=== PATIENT | female | born 1985 | race Caucasian/White ===

== ENCOUNTER → 2019-02-09 | Outpatient (CLI) | payer OTHER ==
--- NOTE | 2019-02-09 11:46 | REP ---
CERVICAL SPINE, SEVEN VIEWS: HISTORY: Sprain. There is no acute fracture or subluxation. The intervertebral discs are normal in height. The neural foramina are patent. There is loss of a normal lordotic curve. IMPRESSION: There is no acute fracture or subluxation. Electronically Signed by Ricco Ritchie MD 02/09/2019 11:49 A
== END ==
LOC: M WUC 10:40
PROVIDERS: ATTEND Physician Assistant
DX: S13.4XXA Sprain of ligaments of cervical spine, initial encounter (principal); Y92.9 Unspecified place or not applicable; Y93.9 Activity, unspecified

== ENCOUNTER → 2019-09-08 | Outpatient (CLI) | payer OTHER ==
[2019-09-08 08:31] LABS: HEMATOCRIT 33.3 % (36.0-47.0); HEMOGLOBIN 11.1 g/dl (12.0-15.5); MEAN CORPUSCULAR HEMOGLOBIN 29.5 pg (27.0-33.0); MEAN CORPUSCULAR HGB CONC 33.3 g/dl (32.0-36.5); MEAN CORPUSCULAR VOLUME 88.6 fl (80.0-96.0); PLATELET COUNT, AUTOMATED 234 10^3/uL (150-450); RED BLOOD COUNT 3.76 10^6/uL (4.00-5.40)
== END ==
LOC: M LAB 07:06
PROVIDERS: ATTEND Nurse Practitioner Women's Health
DX: Z34.03 Encounter for supervision of normal first pregnancy, third trimester (principal); Z3A.00 Weeks of gestation of pregnancy not specified

== ENCOUNTER → 2019-10-31 | Outpatient (REF) | payer OTHER | LOC: M LAB REF 16:20 | PROVIDERS: ATTEND Obstetrics & Gynecology | DX: Z34.83 Encounter for supervision of other normal pregnancy, third trimester (principal) ==

== ENCOUNTER 2019-11-09 01:55 | Inpatient (IN) | payer OTHER ==
[~2019-11-09] VITALS: Ht 165.1 cm; Wt 94.5 kg
[2019-11-09] MEDS ORDERED: LACTATED RINGER'S 1000 ML IV STA (02:18)
[2019-11-09] MEDS ORDERED: LR 1,000 ML IV SCH (02:18)
[2019-11-09] MEDS ORDERED: OXYTOCIN DRIP 30 UNITS in IV 1 EA IV SCH ×2 (02:30→05:30)
[2019-11-09 02:47] LABS: HEMATOCRIT 31.9 % (36.0-47.0); HEMOGLOBIN 10.8 g/dl (12.0-15.5); MEAN CORPUSCULAR HEMOGLOBIN 28.1 pg (27.0-33.0); MEAN CORPUSCULAR HGB CONC 33.9 g/dl (32.0-36.5); MEAN CORPUSCULAR VOLUME 83.1 fl (80.0-96.0); PLATELET COUNT, AUTOMATED 189 10^3/uL (150-450); RED BLOOD COUNT 3.84 10^6/uL (4.00-5.40); WHITE BLOOD COUNT 14.2 10^3/uL (4.0-10.0)
[2019-11-09] MEDS ORDERED: FENTANYL 2MCG/ML ROPIVACAINE 0.2% IN 0.9% NACL 100ML IVBAG As Ordered ONE (02:56)
[2019-11-09] MEDS ORDERED: AMPICILLIN SOD 2 GM in D5W MINI-BAG PLUS 100 ML IV ONE (03:30)
[2019-11-09] MEDS ORDERED: FENTANYL/ROPIVACAINE/NACL BAG 100 ML EPIDURAL SCH (04:00)
[2019-11-09] MEDS ORDERED: EPIDURAL/PCA KEYS XX PRN (04:00)
[2019-11-09] MEDS ORDERED: ePHEDrine SULFATE 25 MG/5 ML(5MG/ML) SYRINGE IV PRN (04:00)
[2019-11-09] MEDS ORDERED: EPIDURAL COMMENT XX SCH (04:00)
[2019-11-09] MEDS ORDERED: NALOXONE INJ 0.4 MG/1 ML VIAL (J2310) IV PRN (04:00)
[2019-11-09] MEDS ORDERED: REFRIGERATOR IV KEYS XX PRN (04:00)
[2019-11-09] MEDS ORDERED: ONDANSETRON 4MG/2ML VIAL (J2405) IV PRN (04:00)
[2019-11-09] MEDS ORDERED: diphenhydrAMINE INJ 50MG/ML VIAL (J1200) IV PRN (04:00)
[2019-11-09] MEDS ORDERED: LACTATED RINGER'S 1000 ML IV PRN (04:00)
[2019-11-09 05:28] LABS: CORD GAS ABE A -1.6; CORD GAS ABE V -2.6; CORD GAS HCO3 A 24.6 MEQ/L; CORD GAS HCO3 V 20.3 MEQ/L; CORD GAS O2 SAT V 74.6 %; CORD GAS PCO2 A 47.1 mmHg; CORD GAS PCO2 V 30.5 mmHg; CORD GAS PH A 7.335 UNITS; CORD GAS PH V 7.442 UNITS; CORD GAS PO2 A 13.4 mmHg; CORD GAS PO2 V 30.6 mmHg; CORD GAS SBC A 21.5 MEQ/L; CORD GAS SBC V 21.8 MEQ/L; CORD GAS TCO2 V 21.3 MEQ/L
[2019-11-09] MEDS ORDERED: RHOGAM 300 MCG (1500 IU) INJ (J2790) IM SCH (05:30)
[2019-11-09] MEDS ORDERED: DOCUSATE SODIUM 100 MG CAP PO PRN (05:30)
[2019-11-09] MEDS ORDERED: MEASLES,MUMPS,RUBELLA VACCINE INJ (MMR-II) (90707) SC SCH (05:30)
[2019-11-09] MEDS ORDERED: ACETAMINOPHEN TAB 650MG DOSE (2X325MG) PO PRN (05:30)
[2019-11-09] MEDS ORDERED: DIBUCAINE 1% OINTMENT 30GM TOP PRN (05:30)
[2019-11-09] MEDS ORDERED: ANUSOL HC CREAM 30GM TOP PRN (05:30)
[2019-11-09] MEDS ORDERED: METHYLERGONOVINE MALEATE 0.2 MG TAB PO PRN (05:30)
[2019-11-09] MEDS ORDERED: IBUPROFEN 800 MG TAB PO PRN (05:30)
[2019-11-09 07:12] VITALS: BP 116/70
[2019-11-09] MEDS: IBUPROFEN 600 MG TAB PO PRN ×2 (07:30→16:26)
[2019-11-09] MEDS ORDERED: AMPICILLIN SOD 1 GM in D5W MINI-BAG PLUS 50 ML IV SCH (07:30)
[2019-11-09] MEDS: PRENATAL VITAMINS CHEWABLE TABLET PO SCH (10:50)
--- NOTE | 2019-11-09 10:56 | HPE ---
DATE OF ADMISSION: 11/09/2019 Jennifer is a 34-year-old female 3, para 2-0-0-2 with an estimated date of confinement (EDC) of 11/23/2019, estimated gestational age (EGA) 38-1/7 weeks gestation who presented to labor and delivery with complaint of gross rupture of membrane with so occasional contractions. The patient has had a similar episode before. Upon evaluation in labor and delivery she was found to be grossly ruptured, Nitrazine positive with pooling. At this point a decision was made for admission. Her record reviewed. The patient had a first trimester ultrasound at 7 weeks. LAB: blood type is A+, rubella immune, hepatitis negative, HIV negative, GC, chlamydia negative. 1-hour sugar testing was within normal limits. Her GBS during this was negative, however the patient does have a history of prior GBS positive and will be treated with ampicillin. PAST MEDICAL HISTORY. Denies. PAST SURGICAL HISTORY: The patient had a loop electrosurgical excision procedure (LEEP) procedure done. SOCIAL HISTORY: She is . Denies any alcohol, drug or cigarette smoking. REVIEW OF SYSTEMS: Unremarkable. MEDICATIONS: vitamin ALLERGIES: NO KNOWN DRUG ALLERGIES. PHYSICAL EXAMINATION: Normal-appearing female in no acute distress. Abdomen: Soft, nontender, nondistended. Extremities: No clubbing, cyanosis or edema. Vaginal exam 4 cm, 80% effaced, fetus at -3 station in a vertex position with gross rupture of membrane, Nitrazine positive and pooling. ASSESSMENT: 1. Intrauterine at 38-1/7 weeks gestation with gross rupture of membrane in early labor. 2. Prior history of GBS positive. PLAN: Admit to labor and delivery. Routine labs sent. Pain management discussed. The patient opted for an epidural. Ampicillin will be started for GBS prophylaxis. Consider Pitocin augmentation.
[2019-11-09 11:21] VITALS: BP 138/77
--- NOTE | 2019-11-09 14:12 | DN ---
DELIVERY NOTE DATE OF DELIVERY: 11/09/2019 Jennifer is a 34-year-old female 3, para 2-0-0-2 who was admitted at 38- 1/7 weeks gestation with spontaneous rupture of membranes in early labor. She then progressed to fully dilated, pushed and delivered a live female with a nuchal cord times one over an intact perineum. scores of 9 and 9. weight 7 pounds 4 ounces. Placenta delivered spontaneously intact. Three- vessel cord. Perineum, vagina, and cervix inspected. No laceration noted. Estimated blood loss 300 mL. Both mother and baby in stable condition. [facility]
[2019-11-09 18:01] VITALS: BP 110/58
[2019-11-09] MEDS: ACETAMINOPHEN 500 MG TAB PO PRN (19:40)
[2019-11-10] MEDS: ACETAMINOPHEN 500 MG TAB PO PRN ×2 (05:47→14:29)
--- NOTE | 2019-11-10 08:01 | IPNPDOC ---
Progress Note Date of Service: Nov 10, 2019 Day#: 1 Progress Note S: Doing well w/o complaints. O: vss, AF gen: well appearing abd: soft, nttp ext: neg calf tenderness A/P: PPD#1 s/p , recovering in stable condition -routine care -d/c tomorrow Theresa Bello MD VS, I&O, 24H, Fishbone Vital Signs/I&O Vital Signs Date Time Temp Pulse Resp B/P (MAP) Pulse Ox O2 Delivery O2 Flow Rate FiO2 11/09/19 18:01 97.7 81 18 110/58 (75) 11/09/19 11:21 Room Air I&O- Last 24 Hours up to 6 AM 11/10/19 06:00 Intake Total 100 ml Output Total 700 ml Balance -600 ml THERESA BELLO MD. Nov 10, 2019 08:01
[2019-11-10] MEDS: PRENATAL VITAMINS CHEWABLE TABLET PO SCH (08:35)
[2019-11-10] MEDS: IBUPROFEN 600 MG TAB PO PRN ×2 (08:36→20:16)
[2019-11-10 17:57] VITALS: BP 128/73
[2019-11-11 05:58] VITALS: BP 121/76
[2019-11-11] MEDS: IBUPROFEN 600 MG TAB PO PRN (10:39)
[2019-11-11] MEDS: PRENATAL VITAMINS CHEWABLE TABLET PO SCH (10:39)
== END 2019-11-11 13:05 | disposition home or self-care (01) | DRG 807 ==
LOC: M LDO 01:55 → M LDI 02:14 → M OBS 11:16
PROVIDERS: ADMIT Obstetrics & Gynecology; ATTEND Obstetrics & Gynecology
PROC: 10E0XZZ Delivery of Products of Conception, External Approach (ICD-10-PCS; principal; 2019-11-09)
DX: O09.523 Supervision of elderly multigravida, third trimester (principal); Z37.0 Single live birth; Z3A.38 38 weeks gestation of pregnancy; Z86.19 Personal history of other infectious and parasitic diseases

== ENCOUNTER → 2020-09-22 | Outpatient (CLI) | payer SELFPAY | LOC: M LABSMTC 09:15 | PROVIDERS: ATTEND Pediatrics | DX: Z20.822 Contact with and (suspected) exposure to COVID-19 (principal) ==

== ENCOUNTER → 2023-03-10 | Outpatient (CLI) | payer OTHER ==
[2023-03-10 16:36] LABS: BASO # 0.1 10^3/uL (0.0-0.2); BASO % 0.6 % (0.0-1.0); EOS # 0.2 10^3/uL (0.0-0.5); EOS % 1.8 % (0.0-3.0); HEMATOCRIT 41.5 % (36.0-47.0); LYMPH # 2.4 10^3/uL (1.5-5.0); LYMPH % 26.8 % (24.0-44.0); MEAN CORPUSCULAR HEMOGLOBIN 29.6 pg (27.0-33.0); MEAN CORPUSCULAR HGB CONC 33.7 g/dl (32.0-36.5); MEAN CORPUSCULAR VOLUME 87.7 fl (80.0-96.0); MONO # 0.7 10^3/uL (0.0-0.8); MONO % 7.5 % (2.0-8.0); NEUTROPHILS # 5.7 10^3/uL (1.5-8.5); PLATELET COUNT, AUTOMATED 229 10^3/uL (150-450); RED BLOOD COUNT 4.73 10^6/uL (4.00-5.40); WHITE BLOOD COUNT 9.1 10^3/uL (4.0-10.0)
[2023-03-10 17:12] LABS: FREE T4 1.07 NG/DL (0.89-1.76); THYROID STIMULATING HORMONE 1.489 uIU/ML (0.55-4.78)
== END ==
LOC: M PLALAB 13:58
PROVIDERS: ATTEND Nurse Practitioner Family
DX: R53.83 Other fatigue (principal); N92.1 Excessive and frequent menstruation with irregular cycle; Z12.4 Encounter for screening for malignant neoplasm of cervix
CPT/HCPCS: 36415; 82652; 84439; 84443; 85025; 87624; G0123

== ENCOUNTER → 2024-06-28 | Outpatient (CLI) | payer OTHER ==
[2024-06-28 12:19] LABS: BASO # 0.1 10^3/uL (0.0-0.2); BASO % 0.8 % (0.0-1.0); EOS # 0.2 10^3/uL (0.0-0.5); HEMATOCRIT 42.5 % (36.0-47.0); HEMOGLOBIN 14.3 g/dl (12.0-15.5); LYMPH # 2.5 10^3/uL (1.5-5.0); LYMPH % 26.5 % (24.0-44.0); MEAN CORPUSCULAR HEMOGLOBIN 29.5 pg (27.0-33.0); MEAN CORPUSCULAR HGB CONC 33.6 g/dl (32.0-36.5); MEAN CORPUSCULAR VOLUME 87.8 fl (80.0-96.0); MONO # 0.8 10^3/uL (0.0-0.8); MONO % 8.5 % (2.0-8.0); NEUTROPHILS # 5.9 10^3/uL (1.5-8.5); NEUTROPHILS % 61.8 % (36.0-66.0); PLATELET COUNT, AUTOMATED 234 10^3/uL (150-450); RED BLOOD COUNT 4.84 10^6/uL (4.00-5.40); WHITE BLOOD COUNT 9.5 10^3/uL (4.0-10.0)
[2024-06-28 12:43] LABS: ALBUMIN 3.8 G/DL (3.2-5.2); ALKALINE PHOSPHATASE 82 U/L (46-116); ALT/SGPT 35 U/L (7.0-40); AST/SGOT 11 U/L (<34); BILIRUBIN,TOTAL 0.5 MG/DL (0.3-1.2); BLOOD UREA NITROGEN 12 MG/DL (9-23); CALCIUM LEVEL 9.9 MG/DL (8.5-10.1); CARBON DIOXIDE LEVEL 27 MMOL/L (20-31); CHLORIDE LEVEL 108 MMOL/L (98-107); CHOLESTEROL LEVEL 152 MG/DL (<200); CHOLESTEROL RISK RATIO 2.74 (<5); CREATININE FOR GFR 0.84 MG/DL (0.55-1.30); GLOMERULAR FILTRATION RATE > 60.0 (>60); GLUCOSE, FASTING 93 MG/DL (60-100); HDL CHOLESTEROL 55.4 MG/DL (>40); LDL CHOLESTEROL 81.2 MG/DL (<100); NON-HDL-C 96.6 MG/DL; POTASSIUM SERUM 4.1 MMOL/L (3.5-5.1); SODIUM LEVEL 138 MMOL/L (136-145); TOTAL PROTEIN 7.1 G/DL (5.7-8.2); TRIGLYCERIDES LEVEL 77 MG/DL (<150)
[2024-06-28 12:44] LABS: THYROID STIMULATING HORMONE 2.126 uIU/ML (0.55-4.78)
[2024-06-28 12:45] LABS: FREE T4 1.59 NG/DL (0.89-1.76)
[2024-06-30 12:42] LABS: QuantiFERON-TB Gold Plus NEGATIVE (NEGATIVE)
== END ==
LOC: M PLALAB 07:12
PROVIDERS: ATTEND Nurse Practitioner Family
DX: Z00.00 Encounter for general adult medical examination without abnormal findings (principal); Z11.1 Encounter for screening for respiratory tuberculosis; R53.83 Other fatigue; Z13.220 Encounter for screening for lipoid disorders

== ENCOUNTER → 2025-05-04 | Outpatient (CLI) | payer OTHER ==
[2025-05-04 10:57] LABS: BASO # 0.1 10^3/uL (0.0-0.2); BASO % 0.8 % (0.0-1.0); EOS # 0.1 10^3/uL (0.0-0.5); EOS % 1.3 % (0.0-3.0); LYMPH # 1.9 10^3/uL (1.5-5.0); LYMPH % 24.8 % (24.0-44.0); MONO # 0.7 10^3/uL (0.0-0.8); MONO % 9.1 % (2.0-8.0); NEUTROPHILS # 4.7 10^3/uL (1.5-8.5); NEUTROPHILS % 63.7 % (36.0-66.0); PLATELET COUNT, AUTOMATED 247 10^3/uL (150-450)
[2025-05-04 11:21] LABS: ALT/SGPT 18.0 U/L (7.0-40); AST/SGOT 17.0 U/L (<34); CALCIUM LEVEL 10.1 MG/DL (8.5-10.1); CARBON DIOXIDE LEVEL 26.0 MMOL/L (20-31); CHLORIDE LEVEL 106.0 MMOL/L (98-107); CREATININE FOR GFR 1.07 MG/DL (0.55-1.30); GLOMERULAR FILTRATION RATE 67.3 (>58); POTASSIUM SERUM 4.0 MMOL/L (3.5-5.1); SODIUM LEVEL 143.0 MMOL/L (136-145)
== END ==
LOC: M PLALAB 09:13
PROVIDERS: ATTEND Nurse Practitioner Family
DX: R10.84 Generalized abdominal pain (principal); K62.5 Hemorrhage of anus and rectum; R19.7 Diarrhea, unspecified

== ENCOUNTER → 2025-06-05 | Outpatient (CLI) | payer OTHER | LOC: M RAD 08:43 | PROVIDERS: ATTEND Nurse Practitioner Family | DX: R10.84 Generalized abdominal pain (principal); K80.20 Calculus of gallbladder without cholecystitis without obstruction ==

== ENCOUNTER → 2025-07-27 | Outpatient (CLI) | payer OTHER | LOC: M WHC 11:16 | PROVIDERS: ATTEND Nurse Practitioner Family | DX: Z12.31 Encounter for screening mammogram for malignant neoplasm of breast (principal); Z53.9 Procedure and treatment not carried out, unspecified reason ==

== ENCOUNTER → 2025-08-02 | Outpatient (CLI) | payer OTHER ==
[~2025-08-02] MED LIST: BUSP10TA79 PO; ESTR1TAB9 PO; THERTAB52 PO; ZYRT10TA12 PO
== END ==
LOC: M WHC 07:37
PROVIDERS: ATTEND Nurse Practitioner Family
DX: Z12.31 Encounter for screening mammogram for malignant neoplasm of breast (principal)

== ENCOUNTER 2025-08-15 07:49 | Day surgery (SDC) | payer OTHER ==
[~2025-08-15] VITALS: Ht 162.6 cm; Wt 77.5 kg
[2025-08-15] MEDS ORDERED: LIDOCAINE 2% 100 MG/5 ML SDV (FOR ANES.) As Ordered ONE (08:27)
[2025-08-15 08:43] VITALS: TEMP 97.8
[2025-08-15 09:12] VITALS: BP 131/90; O2SAT 100
== END 2025-08-15 09:19 | disposition home or self-care (01) ==
LOC: M OPP 07:49
PROVIDERS: ATTEND Surgery
DX: D12.7 Benign neoplasm of rectosigmoid junction (principal); K56.691 Other complete intestinal obstruction; K92.1 Melena; Z79.899 Other long term (current) drug therapy

== ENCOUNTER → 2025-08-21 | Outpatient (CLI) | payer OTHER ==
[~2025-08-21] MED LIST changes: +HYDR-643 PO; +LEXA1TAB PO; +XANA0.25 PO; +XANA0.5T PO
[2025-08-21 17:33] LABS: PLATELET COUNT, AUTOMATED 311 10^3/uL (150-450)
[2025-08-21 17:37] LABS: ALT/SGPT 39 U/L (7.0-40); AST/SGOT 22 U/L (<34); CALCIUM LEVEL 9.6 MG/DL (8.5-10.1); CARBON DIOXIDE LEVEL 24 MMOL/L (20-31); CHLORIDE LEVEL 106 MMOL/L (98-107); CREATININE FOR GFR 0.93 MG/DL (0.55-1.30); GLOMERULAR FILTRATION RATE 79.2 (>58); POTASSIUM SERUM 3.8 MMOL/L (3.5-5.1); SODIUM LEVEL 142 MMOL/L (136-145)
== END ==
LOC: M PLALAB 14:33
PROVIDERS: ATTEND Surgery
DX: D37.4 Neoplasm of uncertain behavior of colon (principal)

== ENCOUNTER → 2025-08-21 | Outpatient (CLI) | payer OTHER ==
[2025-08-21 17:35] LABS: BASO # 0.1 10^3/uL (0.0-0.2); BASO % 0.5 % (0.0-1.0); EOS # 0.1 10^3/uL (0.0-0.5); EOS % 1.0 % (0.0-3.0); LYMPH # 2.4 10^3/uL (1.5-5.0); LYMPH % 24.4 % (24.0-44.0); MONO # 0.7 10^3/uL (0.0-0.8); MONO % 7.3 % (2.0-8.0); NEUTROPHILS # 6.6 10^3/uL (1.5-8.5); NEUTROPHILS % 66.5 % (36.0-66.0); PLATELET COUNT, AUTOMATED 310 10^3/uL (150-450)
[2025-08-21 17:40] LABS: ALT/SGPT 38.0 U/L (7.0-40); AST/SGOT 21.0 U/L (<34); CALCIUM LEVEL 9.5 MG/DL (8.5-10.1); CARBON DIOXIDE LEVEL 24.0 MMOL/L (20-31); CHLORIDE LEVEL 106.0 MMOL/L (98-107); CHOLESTEROL LEVEL 156.0 MG/DL (<200); CHOLESTEROL RISK RATIO 2.93 (<5); CREATININE FOR GFR 0.92 MG/DL (0.55-1.30); GLOMERULAR FILTRATION RATE 80.2 (>58); LDL CHOLESTEROL 88.8 MG/DL (<100); NON-HDL-C 102.8 MG/DL; POTASSIUM SERUM 3.9 MMOL/L (3.5-5.1); SODIUM LEVEL 141.0 MMOL/L (136-145); TRIGLYCERIDES LEVEL 70.0 MG/DL (<150)
[2025-08-21 17:41] LABS: FREE T4 1.59 NG/DL (0.89-1.76)
[2025-08-21 17:44] LABS: TOTAL 25(OH) VITAMIN D 45.3 NG/ML (20.0-100.0)
== END ==
LOC: M PLALAB 14:30
PROVIDERS: ATTEND Nurse Practitioner Family
DX: E55.9 Vitamin D deficiency, unspecified (principal); F43.9 Reaction to severe stress, unspecified; Z13.220 Encounter for screening for lipoid disorders

== ENCOUNTER 2025-08-24 13:38 | Emergency (ER) | payer OTHER ==
[~2025-08-24] VITALS: Ht 162.6 cm; Wt 75.0 kg
[~2025-08-24 13:38] MED LIST changes: -HYDR-643 PO; -LEXA1TAB PO; -XANA0.25 PO; -XANA0.5T PO
[2025-08-24 14:49] LABS: BASO # 0.1 10^3/uL (0.0-0.2); BASO % 0.3 % (0.0-1.0); EOS # 0.0 10^3/uL (0.0-0.5); EOS % 0.1 % (0.0-3.0); LYMPH # 1.7 10^3/uL (1.5-5.0); LYMPH % 11.2 % (24.0-44.0); MONO # 0.5 10^3/uL (0.0-0.8); MONO % 3.5 % (2.0-8.0); NEUTROPHILS # 12.5 10^3/uL (1.5-8.5); NEUTROPHILS % 84.5 % (36.0-66.0); PLATELET COUNT, AUTOMATED 311 10^3/uL (150-450)
[2025-08-24 15:11] LABS: CALCIUM LEVEL 9.7 MG/DL (8.5-10.1); CARBON DIOXIDE LEVEL 19 MMOL/L (20-31); CHLORIDE LEVEL 106 MMOL/L (98-107); CK-MB VALUE MASS < 1.0 NG/ML (<3.6); CPK CREATINE PHOSPHOKINASE 65 U/L (34-145); CREATININE FOR GFR 0.82 MG/DL (0.55-1.30); GLOMERULAR FILTRATION RATE > 90.0 (>58); MAGNESIUM LEVEL 1.8 MG/DL (1.8-2.4); POTASSIUM SERUM 3.4 MMOL/L (3.5-5.1); SODIUM LEVEL 137 MMOL/L (136-145)
[2025-08-24 15:17] LABS: HCG, SERUM QUALITATIVE NEGATIVE (NEGATIVE)
[2025-08-24] MEDS ORDERED: XANA0.25 PO (15:45)
[2025-08-24] MEDS ORDERED: HYDR-643 PO (15:45)
[2025-08-24] MEDS ORDERED: LEXA1TAB PO (15:45)
[2025-08-24] MEDS ORDERED: ISOVUE-370 76% 100 ML VIAL As Ordered ONE (17:28)
[2025-08-24] MEDS: NS (Normal Saline) 0.9% 1,000 ML IV ONE (17:59)
[2025-08-24 18:54] VITALS: BP 131/87; TEMP 98.7; O2SAT 98
[2025-08-24] MEDS ORDERED: XANA0.5T PO (19:42)
== END 2025-08-24 19:48 | disposition home or self-care (01) ==
LOC: M ED 13:38
DX: R00.2 Palpitations (principal); T43.225A Adverse effect of selective serotonin reuptake inhibitors, initial encounter; R06.02 Shortness of breath; F41.9 Anxiety disorder, unspecified; C18.9 Malignant neoplasm of colon, unspecified; Z79.899 Other long term (current) drug therapy
CPT/HCPCS: 71275; 80048; 82550; 82553; 83735; 84443; 84484; 84703; 85025; 87486; 87581; 87633; 87798; 93005; 96361; 96374; 99284; J2060; Q9967

== ENCOUNTER → 2025-08-28 | Outpatient (CLI) | payer OTHER ==
[~2025-08-28] MED LIST changes: +GASTROGRAFIN SOLUTION 30 ML As Ordered ONE; +HYDR-643 PO; +ISOVUE-370 76% 100 ML VIAL As Ordered ONE; +LEXA1TAB PO; +XANA0.25 PO; +XANA0.5T PO
== END ==
LOC: M RAD 12:02
PROVIDERS: ATTEND Surgery
DX: D37.4 Neoplasm of uncertain behavior of colon (principal); N20.0 Calculus of kidney
CPT/HCPCS: 71260; 74177; Q9963; Q9967

== ENCOUNTER → 2025-09-11 | Outpatient (CLI) | payer OTHER ==
[~2025-09-11] MED LIST changes: +BUSP10TA PO; +DROS4TAB PO; -GASTROGRAFIN SOLUTION 30 ML As Ordered ONE; -ISOVUE-370 76% 100 ML VIAL As Ordered ONE; +PROHANCE 279.3MG/ML 15ML VIAL ONE
== END ==
LOC: M PLAIMG 12:12
PROVIDERS: ATTEND Student in an Organized Health Care Education/Training Program
DX: C18.9 Malignant neoplasm of colon, unspecified (principal)
CPT/HCPCS: 70553; A9579